=== PATIENT | female | born 1955 | race Caucasian/White ===

== ENCOUNTER → 2017-02-20 | Outpatient (CLI) | payer OTHER ==
[~2017-02-20] VITALS: Ht 160 cm; Wt 74.4 kg
[~2017-02-20] MED LIST: CEFTIN500 MG PO; COQ-10100 MG PO; Combivent IH; ZYRTEC10 M3 PO; Zithromax PO
== END | disposition home or self-care (01) ==
LOC: AMB 07:54
PROC: 0DJD8ZZ Inspection of Lower Intestinal Tract, Via Natural or Artificial Opening Endoscopic (ICD-10-PCS; principal; 2017-02-20)
DX: Z12.11 Encounter for screening for malignant neoplasm of colon (principal); R10.2 Pelvic and perineal pain; R14.0 Abdominal distension (gaseous); K59.09 Other constipation; K21.9 Gastro-esophageal reflux disease without esophagitis; E78.00 Pure hypercholesterolemia, unspecified; E78.5 Hyperlipidemia, unspecified; L90.0 Lichen sclerosus et atrophicus; R63.4 Abnormal weight loss; Z90.49 Acquired absence of other specified parts of digestive tract; Z80.0 Family history of malignant neoplasm of digestive organs; Z83.49 Family history of other endocrine, nutritional and metabolic diseases; Z82.49 Family history of ischemic heart disease and other diseases of the circulatory system; Z80.41 Family history of malignant neoplasm of ovary; Z88.1 Allergy status to other antibiotic agents; Z88.5 Allergy status to narcotic agent
CPT/HCPCS: J2250; J3010